=== PATIENT | male | born 1960 | race Two or more races ===

== ENCOUNTER → 2024-08-19 | Outpatient (CLI) | payer MEDICAID, SELFPAY ==
--- NOTE | 2024-08-19 11:40 | XR_ITS ---
Examination: Abdomen AP single view Technique: AP portable supine abdomen, single view Exam date and time: August 19, 2024 1326 hours INDICATIONS: History kidney stones FINDINGS: 3 mm calcification mid right kidney No ureteral calculi Nonobstructive bowel gas pattern IMPRESSION: 3 mm right renal calculus
== END | disposition home or self-care (01) ==
PROVIDERS: PCP Surgery; Referring Provider Surgery; Visit Provider Surgery
DX: N20.0 Calculus of kidney (principal)
CPT/HCPCS: 74018